=== PATIENT | male | born 2000 | race Caucasian/White ===

== ENCOUNTER 2025-03-01 13:37 | Emergency (ER) | payer OTHER, SELFPAY ==
[2025-03-01 13:45] VITALS: BP 155/89; PULSE 87; TEMP 36.9; O2SAT 96; BMI 25.8
[2025-03-01] MEDS: ONDANSETRON PF 4 MG/2 ML VIAL IV (14:14)
[2025-03-01] MEDS: KETOROLAC TROMETHAMINE 30 MG/ML VIAL IVP (14:14)
[2025-03-01 14:16] LABS: Basophils Percent Auto 0.2 % (0.2-2.0); Eosinophils Absolute Auto 0.1 10^3/uL (0.0-0.7); Eosinophils Percent Auto 0.9 % (0.9-7.0); Hematocrit 46.3 % (42.0-54.0); Hemoglobin 16.4 g/dL (14.0-18.0); Immature Granulocytes Abs Auto 0.03 10^3/uL (0.00-0.03); Immature Granulocytes Pct Auto 0.3 % (0.0-0.5); Lymphocytes Absolute Auto 1.8 10^3/uL (1.2-3.8); Lymphocytes Percent Auto 15.9 % (20.5-60.0); Mean Corpuscular HGB Conc 35.4 g/dL (29.9-35.2); Mean Corpuscular Hemoglobin 28.8 pg (25.9-34.0); Mean Corpuscular Volume 81.2 fL (80.0-94.0); Mean Platelet Volume 10.3 fL (9.5-13.5); Monocytes Absolute Auto 0.6 10^3/uL (0.3-0.8); Monocytes Percent Auto 5.3 % (1.7-12.0); Neutrophils Absolute Auto 8.9 10^3/uL (1.4-6.5); Neutrophils Percent Auto 77.4 % (43.0-75.0); Platelet Count 256 10^3/uL (150-450); White Blood Count 11.5 10^3/uL (4.0-11.0)
[2025-03-01 14:29] LABS: Alanine Aminotransferase 86 U/L (16-63); Albumin Globulin Ratio 1.2; Albumin Level 4.5 g/dL (3.4-5.0); Alkaline Phosphatase 60 U/L (46-116); Anion Gap 14.9; Aspartate Amino Transferase 30 U/L (15-37); BUN Creatinine Ratio 13.3; Bilirubin Total 0.6 mg/dL (0.2-1.0); Carbon Dioxide 29.1 mmol/L (21.0-32.0); Chloride 102 mmol/L (98-107); Estimated GFR (African America >60 (>=60 mL/min/1.73m^2); Estimated GFR (Non-African Ame >60 (>=60 mL/min/1.73m^2); Globulin 3.7 g/dL; Glucose 103 mg/dL (74-106); Sodium 142 mmol/L (136-145); Total Protein 8.2 g/dL (6.4-8.2)
--- NOTE | 2025-03-01 14:45 | ED_ITS ---
HPI HPI - General Adult General Chief complaint: Abdominal Pain Stated complaint: STOMACH ACHE Time Seen by Provider: 03/01/25 13:43 Source: patient Mode of arrival: Wheelchair Limitations: no limitations History of Present Illness HPI narrative: The patient is a 24-year-old male who presented to the emergency department today for evaluation concerns for abdominal pain. He endorses since 8 AM he has had periumbilical region pain. Reports associated symptoms of nausea/vomiting and diarrhea. He states he has had 3 episodes of emesis and 2 episodes of diarrhea-like stools. He denies any fever/chills, cough/cold symptoms, chest pain, shortness of breath, urinary symptoms, or back/flank pain. He does endorse he had an appendectomy in 2019. Related Data Home Medications ?Medication ?Instructions ?Recorded ?Confirmed lisinopril 10 mg tablet 10 mg PO DAILY 03/01/2504/18 pantoprazole 40 mg tablet,delayed 40 mg PO DAILY 03/0103/01/25 release Allergies Allergy/AdvReac Type Severity Reaction Status Date / Time No Known Drug Allergies Allergy Verified 03/01/25 13:48 Opioid HPI Opioid Management Most Recent Opioid Data: Last Pain Scale 7 Today, 13:45 Last MAR Pain Assessment Today, 14:14 Review of Systems ROS Status of ROS 10 or more systems reviewed and unremark able except as noted in history and below [facility] Surgical History (Updated 03/01/25 @ 14:45 by Doug Hagan) Hx of appendectomy ?Z90.49 - Acquired absence of other specified parts of digestive tract (ICD- 10) Social History Little interest or pleasure in doing things: not at all Feeling down, depressed, or hopeless: not at all Exam Narrative Exam Narrative: Constituational: Awake/ alert, no apparent distress, well hydrated HENMT: normocephalic, external ears normal, moist oral mucous membranes and oropharynx normal Eyes: EOMI and conjunctivae normal Neck: ROM intact Chest: inspection of chest normal Respiratory: Normal respiratory effort, clear to auscultation bilaterally Cardio: regular rate and regular rhythm GI: + mild discomfort to periumbilical region, abdomen is otherwise soft to palpation and non-tender, no CVA tenderness Back: nontender MSK: ROM intact, +NVI Skin: no rashes or petechiae Neuro: no focal deficits Psych: mental status grossly normal Constitutional Vital Signs, click to edit/add: Last Vital Signs Temp 98.5 F 03/01/25 13:45 Pulse 90 03/01/25 19:47 Resp 18 03/01/25 19:47 BP 164/91 H 03/01/25 19:47 Pulse Ox 98 03/01/25 19:47 O2 Del Method Room Air 03/01/25 19:47 Course Vital Signs Vital signs: Vital Signs Temperature 98.5 F 03/01/25 13:45 Pulse Rate 87 03/01/25 13:45 Respiratory Rate 20 03/01/25 13:45 Blood Pressure 155/89 H 03/01/25 13:45 Pulse Oximetry 96 03/01/25 13:45 Oxygen Delivery Method Room Air 03/01/25 13:45 Temperature 98.5 F 03/01/25 13:45 Pulse Rate 90 03/01/25 19:47 Respiratory Rate 18 03/01/25 19:47 Blood Pressure 164/91 H 03/01/25 19:47 Pulse Oximetry 98 03/01/25 19:47 Oxygen Delivery Method Room Air 03/01/25 19:47 Medical Decision Making [facility] Narrative Medical decision making narrative: Patient is a nontoxic-appearing 24-year-old male who presented to the emergency department today for evaluation concerns for abdominal discomfort with associated symptoms of nausea/vomiting/diarrhea. Initial examination patient with noted abdominal pain to mostly the periumbilical region and RLQ. Patient received supportive measures of Toradol and Zofran and on reevaluation he reported some improvement in condition. Labs showed mild leukocytosis with WBCs 11 otherwise no significant anemia or thrombocytopenia. Electrolytes including renal and hepatic function stable. Normal lipase. UA is negative for UTI. CT imaging of abdomen and pelvis is concerning for partial small bowel obstruction. Patient was reevaluated multiple times while in the emergency department and did subsequent receive a dose of morphine due to reported ongoing abdominal pain. He reported his nausea to be overall stable will hold off on NG tube at this time. Did discuss patient's condition with Dr. Mar (general surgery- [facility]) -> accepts patient for transfer and will follow along on con sultation if bed available per hospitalist. Did subsequently discuss patient's condition with [facility] hospitalist (Dr. Buckley) -> patient accepted for admission. Discussed the above findings and recommendations with the patient. He additionally is agreeable to plan to transfer to [facility] by ground ambulance for further care of the above. Medical Records Medical records reviewed: Yes I reviewed the patient's medical records Lab Data Lab results reviewed: Yes I reviewed the patient's lab results Labs: Lab Results 03/01/25 03/01/25 Range/Units 14:07 15:18 WBC 11.5 H (4.0-11.0) 10^3/uL RBC 5.70 (4.70-6.10) 10^6/uL Hgb 16.4 (14.0-18.0) g/dL Hct 46.3 (42.0-54.0) % MCV 81.2 (80.0-94.0) fL MCH 28.8 (25.9-34.0) pg MCHC 35.4 H (29.9-35.2) g/dL RDW 12.0 (11.0-15.0) % Plt Count 256 (150-450) 10^3/uL MPV 10.3 (9.5-13.5) fL Neut % (Auto) 77.4 H (43.0-75.0) % Lymph % (Auto) 15.9 L (20.5-60.0) % [place] % (Auto) 5.3 (1.7-12.0) % Eos % (Auto) 0.9 (0.9-7.0) % Baso % (Auto) 0.2 (0.2-2.0) % Neut # (Auto) 8.9 H (1.4-6.5) 10^3/uL Lymph # (Auto) 1.8 (1.2-3.8) 10^3/uL [place] # (Auto) 0.6 (0.3-0.8) 10^3/uL Eos # (Auto) 0.1 (0.0-0.7) 10^3/uL Baso # (Auto) 0.0 (0.0-0.1) 10^3/uL Abs Immat Gran (auto) 0.03 (0.00-0.03) 10^3/uL Imm/Tot Granulo (auto) 0.3 (0.0-0.5) % Sodium 142 (136-145) mmol/L Potassium 4.0 (3.5-5.1) mmol/L Chloride 102 (98-107) mmol/L Carbon Dioxide 29.1 (21.0-32.0) mmol/L Anion Gap 14.9 BUN 14.0 (7.0-18.0) mg/dL Creatinine 1.05 (0.70-1.30) mg/dL Est GFR ( Amer) >60 (>=60 mL/min/1.73m^2) Est GFR (Non-Af Amer) >60 (>=60 mL/min/1.73m^2) BUN/Creatinine Ratio 13.3 Glucose 103 (74-106) mg/dL Calcium 10.0 (8.5-10.1) mg/dL Total Bilirubin 0.6 (0.2-1.0) mg/dL AST 30 (15-37) U/L ALT 86 H (16-63) U/L Alkaline Phosphatase 60 (46-116) U/L Total Protein 8.2 (6.4-8.2) g/dL Albumin 4.5 (3.4-5.0) g/dL Globulin 3.7 g/dL Albumin/Globulin Ratio 1.2 Lipase 31.0 (16.0-77.0) U/L Urine Color Dk. yellow (YELLOW) Urine Clarity Clear (CLEAR) Urine pH 6.5 (5.0-9.0) Ur Specific [place] <=1.005 A (1.005-1.025) Urine Protein Negative (NEG/TRACE) mg/dL Urine Glucose (UA) Negative (NEGATIVE) mg/dL Urine Ketones Negative (NEGATIVE) mg/dL Urine Occult Blood Negative (NEGATIVE) Urine Nitrite Negative (NEGATIVE) Urine Bilirubin Negative (NEGATIVE) Urine Urobilinogen 0.2 (0.2-1.0) EU/dL Ur Leukocyte Esterase Negative (NEGATIVE) Imaging Data CT scan - abdomen: Attestation: I have reviewed the pertinent imaging results. Radiologist's impression: Stool-filled distended small bowel loops in right lower quadrant associated with partial small bowel obstruction. Small volume of free fluid in the pelvis. Appendectomy. Fatty infiltration of liver. Small umbilical hernia contains only fat. Small right lower quadrant lymph nodes. No abscess or hematoma. Discharge Plan Discharge Chief Complaint: Abdominal Pain Clinical Impression: Small bowel obstruction Patient Disposition: [facility]
[2025-03-01 15:46] LABS: Bilirubin Urine NEGATIVE (NEGATIVE); Blood Urine NEGATIVE (NEGATIVE); Clarity Urine CLEAR (CLEAR); Color Urine DK. YELLOW (YELLOW); Glucose Urine UA NEGATIVE (NEGATIVE); Ketones Urine NEGATIVE (NEGATIVE); Leukocyte Esterase Urine NEGATIVE (NEGATIVE); Nitrite Urine NEGATIVE (NEGATIVE); Protein Urine NEGATIVE (NEG/TRACE); Specific Gravity Urine <=1.005 (1.005-1.025); Urine Microscopic Indicated NO; Urobilinogen Urine 0.2 EU/dL (0.2-1.0); pH Urine 6.5 (5.0-9.0)
[2025-03-01] MEDS: ACETAMINOPHEN 500 MG TABLET 1000 MG PO (18:14)
[2025-03-01] MEDS: MORPHINE SULFATE 2 MG/ML SYRINGE IV (19:05)
[2025-03-01] MEDS: 0.9 % SODIUM CHLORIDE 1,000 ML 1000 ML IV (19:30)
[2025-03-01 19:47] VITALS: BP 164/91; PULSE 90; O2SAT 98
[2025-03-01] MEDS: 0.9 % SODIUM CHLORIDE 1,000 ML 250 ML IV (20:53)
== END 2025-03-02 00:40 | disposition short-term general hospital (02) ==
PROVIDERS: Nurse Practitioner; Emergency Provider Emergency Medicine; PCP Family Medicine
DX: K56.600 Partial intestinal obstruction, unspecified as to cause (principal); Z90.49 Acquired absence of other specified parts of digestive tract
CPT/HCPCS: 36415; 74177; 80053; 81003; 83690; 85025; 96361; 96374; 96375; 99285; J1885; J2270; J2405; Q9967